=== PATIENT | female | born 1975 | race African-American/Black ===

== ENCOUNTER 2019-11-18 23:02 | Emergency (ER) | payer OTHER ==
[~2019-11-18] VITALS: Ht 157.5 cm; Wt 64.4 kg
[2019-11-19] MEDS ORDERED: CLARITIN10 MG PO (01:29)
[2019-11-19] MEDS ORDERED: TUSNEL LIQUID178 ML PO (01:29)
[2019-11-19] MEDS ORDERED: OSEL75CA PO (01:29)
[2019-11-19] MEDS ORDERED: DOLOGEN CAPLET1 EACH PO (01:29)
== END 2019-11-19 01:44 | disposition home or self-care (01) ==
LOC: ER 23:02
DX: J11.1 Influenza due to unidentified influenza virus with other respiratory manifestations (principal); B34.9 Viral infection, unspecified

== ENCOUNTER 2024-12-27 13:18 | Emergency (ER) | payer OTHER ==
[~2024-12-27] VITALS: Ht 157.5 cm; Wt 73.9 kg
[~2024-12-27 13:18] MED LIST: CLARITIN10 MG PO; DOLOGEN CAPLET1 EACH PO; OSEL75CA PO; TUSNEL LIQUID178 ML PO
[2024-12-27] MEDS ORDERED: ACETAMINOPHEN 500 MG GEL..CAP PO STA (14:22)
[2024-12-27 14:50] LABS: HEMATOCRIT 38.7 % (36.0-45.00); HEMOGLOBIN 12.9 g/dL (12.0-15.00); MEAN CELL VOLUME 84.8 fL (80.00-100.00); MEAN CORPUSCULAR HEMOGLOBIN 28.3 pg (27.00-32.0); MEAN CORPUSCULAR HGB CONC 33.4 g/dl (32.0-36.0); PLATELET COUNT 271 K/uL (150-450); RED BLOOD COUNT 4.56 M/uL (4.00-6.00); RED CELL DISTRIBUTION WIDTH 13.3 % (11.5-14.5)
== END 2024-12-27 16:00 | disposition home or self-care (01) ==
LOC: ER 13:21
PROVIDERS: General Practice
DX: B34.9 Viral infection, unspecified (principal); R53.81 Other malaise; Z20.822 Contact with and (suspected) exposure to COVID-19

== ENCOUNTER 2025-09-02 08:35 | Emergency (ER) | payer OTHER ==
[~2025-09-02] VITALS: Ht 157.5 cm; Wt 68.0 kg
[2025-09-02 08:55] VITALS: BP 126/68; O2SAT 99
[2025-09-02] MEDS ORDERED: ORPHENADRINE CITRATE 30 MG/ML AMPUL IM ONE (09:45)
[2025-09-02] MEDS ORDERED: DEXAMETHASONE SODIUM PHOSPHATE 4 MG/ML VIAL IM ONE (09:45)
[2025-09-02] MEDS ORDERED: KETOROLAC TROMETHAMINE 60 MG VIAL IM ONE ×2 (09:45→09:50)
[2025-09-02] MEDS ORDERED: ORPHENADRINE CITRATE 30 MG/ML AMPUL ONE (09:50)
[2025-09-02] MEDS ORDERED: DEXAMETHASONE SODIUM PHOSPHATE 4 MG/ML VIAL ONE (09:51)
[2025-09-02 10:15] LABS: BASO % 0.4 % (0.1-1.2); EOS # 0.13 (0.04-0.54); EOS % 1.5 % (0.7-7.0); LYMPH # 2.57 (1.18-3.74); LYMPH % 30.5 % (19.3-53.1); MEAN PLATELET VOLUME 10.30 fl (9.4-12.4); MONO # 0.50 (0.24-0.82); MONO % 5.9 % (4.7-12.5); NEUT # 5.19 (1.56-6.13); NEUT % 61.5 % (34.0-71.1); RED CELL DISTRIBUTION WIDTH 12.6 % (11.6-14.4)
[2025-09-02 10:38] LABS: INR 1.0
[2025-09-02 11:08] LABS: ALT/SGPT 32.0 U/L (12-78); AST/SGOT 20.0 U/L (15-37); BILIRUBIN TOTAL 0.53 mg/dL (0.3-1.2); BILIRUBIN,CONJUGATED 0.17 mg/dL (0.0-0.2); BUN CREA RATIO 17.0 (7.0-25.0); CKMB 1.2 NG/ML (0.5-3.6); CREATININE SERUM 0.83 mg/dL (0.55-1.02); GFR 73.37; GLUCOSE FASTING 92.0 mg/dL (65-100); OSMOLALITY SERUM 283.0 MOSM/KG (275-295); PHOSPHOKINASE CREATININE 144.0 U/L (26-192)
== END 2025-09-02 13:06 | disposition home or self-care (01) ==
LOC: ER 08:36
PROVIDERS: General Practice
DX: M94.0 Chondrocostal junction syndrome [Tietze] (principal); R07.89 Other chest pain